=== PATIENT | female | born 1960 | race Caucasian/White ===

== ENCOUNTER 2021-05-12 11:53 | Emergency (ER) | payer SELFPAY ==
[~2021-05-12] VITALS: Ht 165.1 cm; Wt 72.7 kg
[2021-05-12 12:01] VITALS: BP 115/77
[2021-05-12] MEDS ORDERED: antibiotic PO (12:04)
== END 2021-05-12 13:42 | disposition home or self-care (01) ==
LOC: EDSEX 11:59 → EMS 11:59
DX: K08.89 Other specified disorders of teeth and supporting structures (principal)
CPT/HCPCS: 99283; Z7502